=== PATIENT | female | born 1990 | race African-American/Black ===

== ENCOUNTER 2017-01-02 11:46 | Emergency (ER) | payer OTHER ==
--- NOTE | ~2017-01-02 | CR72 ---
[facility] A Service of [facility] & [facility] RADIOLOGY TEXT RESULTS PATIENT: CEDRIC ROSA LOCATION: [facility] : [birth year] UNIT #: [id number] AGE: [address]: Azeem Bills MD SEX: F ORDER DR: [id number] [facility] [address] [place], [place] [address] [id number] E MR#: [id number] Acc #: [id number] NAME: CEDRIC ROSA : 1990 SEX: F STUDY DATE/TIME: 01/02/2017 11:40 UNIT: [facility] ROOM: STUDY DESCRIPTION: CR Chest Single View Portable Attending Physician: Michael Bills M.D. Ordering Physician: Ed Elías Molina M.D. Primary Care Physician: [facility], [facility] MEDICAL IMAGING REPORT This report is preliminary unless electronic signature is present EXAM Portable chest, 1 view, 01/02/2017. COMPARISON STUDIES 08/30/2016 CLINICAL HISTORY 3-week history of cough and congestion with nausea. FINDINGS There is mild bibasilar interstitial prominence but this probably relates to submaximal inspiration. Lungs are otherwise clear and heart size normal. There is redemonstrated mild dextroscoliosis. Dictated by... Juventino Alfred M.D. THIS IS AN ELECTRONICALLY VERIFIED REPORT Juventino Alfred M.D. at 01/02/2017 3:51 PM TEV/adrian TD: 01/02/2017 13:50 JOB #: [id number] MEDICAL IMAGING REPORT Page 1 of 1 COPY
[2017-01-02 12:19] LABS: URINE SOURCE CLEAN CATCH
[2017-01-02 12:24] LABS: URINE APPEARANCE CLEAR; URINE BILIRUBIN NEG (NEG); URINE BLOOD TRACE (NEG); URINE COLOR YELLOW; URINE GLUCOSE NEG (NEG); URINE KETONE NEG (NEG); URINE LEUKOCYTE ESTERASE NEG (NEG); URINE NITRATE NEG (NEG); URINE PROTEIN NEG (NEG); URINE SPECIFIC GRAVITY 1.008 (1.003-1.035); URINE UROBILINOGEN 0.2 MG/DL (NEG)
[2017-01-02 12:26] LABS: CULTURE INDICATED? YES; URBCS1 AUWI 0-2 /[HPF] (0-2); URINE BACTERIA AUWI 1+ (NEGATIVE); URINE SQUAMOUS EPITHELIAL CELL OCC /[HPF]; UWBCS1 AUWI 0-2 (0-5)
[2017-01-06 23:30] LABS: CHLAMYDIA TRACH Not Detected (Not Detected); N GONOR Not Detected (Not Detected)
== END 2017-01-02 13:44 | disposition home or self-care (01) ==
LOC: CED 11:46
PROVIDERS: Emergency Medicine
DX: R30.0 Dysuria (principal); J40 Bronchitis, not specified as acute or chronic; F17.210 Nicotine dependence, cigarettes, uncomplicated; Z88.5 Allergy status to narcotic agent
CPT/HCPCS: 71010; 81003; 84703; 87086; 87491; 87591; 99283